=== PATIENT | female | born 1990 | race Caucasian/White ===

== ENCOUNTER 2021-05-25 12:28 | Emergency (ER) | payer OTHER, SELFPAY ==
--- NOTE | 2021-05-25 12:36 | ED.URI ---
HPI - URI/Sore Throat General Chief Complaint: Upper Respiratory Infection Stated Complaint: sinus infection Time Seen by Provider: 05/25/21 13:26 Source: patient and RN notes reviewed Mode of arrival: ambulatory Limitations: no limitations History of Present Illness HPI Narrative: 30-year-old female presents with concern for 3-day history of sore throat, sinus pain, nasal congestion, rhinorrhea, nausea. She reports sinus pressure and pressure around the eyes. Reports nasal drainage worsening. She reports sweats, has not taken her to her. She is vaccinated for COVID and flu. MD elicited complaint: sore throat and nasal congestion Related Data Home Medications Medication Instructions Recorded Confirmed Flonase 05/25/21 NuvaRing 05/25/21 Singulair 05/25/21 Zyrtec 05/25/21 Allergies Allergy/AdvReac Type Severity Reaction Status Date / Time No Known Allergies Allergy Verified 05/25/21 12:42 Review of Systems Review of Systems: CONSTITUTIONAL: Reports malaise,sweats EYES: Denies visual changes, redness, or discharge. ENT: Reports rhinorrhea, congestion, sinus pain, otalgia and sore throat. CARDIOVASCULAR: Denies chest pain, palpitations, or edema. RESPIRATORY: Reports occasional cough. Denies dyspnea. GASTROINTESTINAL: Denies abdominal pain, nausea, vomiting, diarrhea SKIN: Denies rash or itching. MUSCULOSKELETAL: Denies myalgia. NEUROLOGIC: Denies headache. All systems reviewed & are unremarkable except as noted in HPI and below PMFSH Comments At time of signature, agree with nursing past medical, surgical, social and family history. There is no relevant family history pertinent to the presenting complaint Exam Narrative: GENERAL: Nontoxic-appearing, well-nourished, and in no acute distress. HEAD: Normocephalic EYES: PERRLA, conjunctivae clear ENT: Nares clear. Mucous membranes moist. TM pearly murdock with dull light reflex bilaterally; no tragal tenderness. Oropharynx not erythematous without lesions. Tonsils not enlarged and without exudate, no drooling, no hoarseness, no trismus, uvula midline. NECK: Supple. No lymphadenopathy CHEST: Clear to auscultation, breath sounds equal. No wheezing, rhonchi, rales, or stridor. No respiratory distress, speaks in full sentences. HEART: Regular rate and rhythm. No murmur heard. SKIN: Warm, dry, no rash. NEURO: Alert and oriented x3. PSYCH: Normal mood and affect Course Course Emergency Course: Patient is aware of diagnosis, understands and agrees to treatment plan. Anticipatory guidance given. Patient agrees to follow-up as directed and is aware of reasons to seek care at the emergency department. Portions of this record may have been created with voice recognition software Level of Care: Express Care Visit Vital Signs Vital signs: Reviewed. MDM - URI/Sore Throat MDM Narrative Medical decision making narrative: Differential diagnosis considered: Lopez virus, strep pharyngitis, allergic rhinitis, upper respiratory tract infection, sinusitis, rhinosinusitis, nasopharyngitis. viral pharyngitis, otitis media, otitis externa, pneumonia, bronchitis, viral cough syndrome, viral syndrome, and influenza. Exam findings show no acute concerns or changes; patient is non-toxic appearing and is in no distress. Patient is appropriate for outpatient treatment and follow-up. Lab Data Attestation: I reviewed the patient's lab results. Critical Care Time Critical Care Time Critical Care Time: No Discharge Plan Discharge Clinical Impression: COVID-19, Influenza A Patient Disposition: Home, Self-Care Condition: Stable Instructions: Influenza (ED), How to Recover from COVID-19 at Home (ED) Additional Instructions: Your influenza test is positive Your rapid COVID test was positive today. The following recommendations have been made by the CDC and local Health Departments, regarding COVID-19: -Those individuals with mild cases of COVID-19 can generally be disco
== END 2021-05-25 13:43 | disposition home or self-care (01) ==
PROVIDERS: Emergency Provider Nurse Practitioner; PCP Family Medicine
DX: U07.1 COVID-19 (principal); J10.1 Influenza due to other identified influenza virus with other respiratory manifestations
CPT/HCPCS: 87426; 87804; 99213; C9803; G0463

== ENCOUNTER 2021-08-01 16:38 | Emergency (ER) | payer OTHER, SELFPAY ==
--- NOTE | ~2021-08-01 | XR_ITS ---
EXAMINATION: [id number] EXAM DATE: 08/01/2021 17:55 INDICATION: No known recent injury provided at this time. Pain of the left ribs. TECHNIQUE: Frontal projection of the upper left ribs, frontal projection of the lower left ribs, obli que projection of the left ribs, frontal chest x-ray(s) for interpretation. There is no prior study for comparison. FINDINGS: There are no displaced acute left rib fractures identified. There are no osteoblastic or o steolytic lesions identified. There is no soft tissue abnormality seen. No confluent consolidation, pneumothorax or pleural effusion suspected. IMPRESSION: No acute cardiopulmonary findings. Unremarkable left ribs. Reviewed, dictated and finalized at location .
[2021-08-01 17:02] VITALS: BP 107/87; PULSE 99; RESP 16; TEMP 37.6; O2SAT 100
--- NOTE | 2021-08-01 17:36 | ED.BACK ---
HPI - Back Pain/Injury General Chief Complaint: Back Pain/Injury Stated Complaint: Side and back Pain Time Seen by Provider: 08/01/21 17:37 Source: patient Mode of arrival: ambulatory Limitations: no limitations History of Present Illness HPI Narrative: 30-year-old female presents with pain to left mid back for 2 to 3 days. Denies injury. Did go and see her chiropractor, had x-rays of lower back and was told was normal. Was told to come to urgent care for muscle relaxant. Reports spasm when turning and when taking deep breath. Denies shortness of breath. All systems reviewed and negative except as noted above. Related Data Home Medications Medication Instructions Recorded Confirmed cetirizine 10 mg PO DAILY 08/01/21 08/01/21 etonogestrel-ethinyl estradiol 1 vag ring VAGINAL DIRECTED 08/01/21 08/01/21 [NuvaRing] fluticasone propionate 2 mcg INTRANASAL DIRECTED 08/01/21 08/01/21 montelukast 10 mg PO DAILY 08/01/21 08/01/21 Allergies Allergy/AdvReac Type Severity Reaction Status Date / Time No Known Allergies Allergy Verified 05/25/21 12:42 Review of Systems Review of Systems: CONSTITUTIONAL: Denies fever, chills, or sweats. EYES: Denies visual changes, redness, or discharge. ENT: Denies rhinorrhea, congestion, sore throat, or otalgia. CARDIOVASCULAR: Denies chest pain, palpitations, or edema. RESPIRATORY: Denies cough or dyspnea. GASTROINTESTINAL: Denies abdominal pain, nausea, vomiting, or diarrhea. GENITOURINARY: Denies dysuria or hematuria. SKIN: Denies rash or itching. MUSCULOSKELETAL: Pain to left mid back. NEUROLOGIC: Denies headache, numbness, or weakness. PSYCHIATRIC: Denies anxiety or depression. All other systems reviewed are negative, except as documented in HPI. PMFSH Comments At time of signature, agree with nursing past medical, surgical, social and family history. There is no relevant family history pertinent to the presenting complaint. Exam Narrative: GENERAL: This is a well-nourished, well-developed patient, in no apparent distress. HEAD: normocephalic, atraumatic. EYES: PERRL. Sclera clear/white. Vision is grossly intact. EARS: External ears normal NOSE: External nose normal THROAT: Mucous membranes moist NECK: Neck supple, non-tender without lymphadenopathy, masses or thyromegaly. CARDIOVASCULAR: Regular rate and rhythm without murmurs, gallops, or rubs. RESPIRATORY: Decreased lung sounds, patient reports pain when trying to take a deep breath. SKIN: warm, Dry, intact with no suspicious lesions or rash, good texture and turgor. NEURO: awake, alert, and oriented to person, place and time. There were no obvious focal neurologic abnormalities. EXTREMITIES: Normal range of motion to all extremities. BACK: Tenderness to left mid back. Spasm. Worse with flexion. Back/Spine/Pelvis: Back/spine/pelvis image: 1. tender on palpation Course Course Level of Care: Express Care Visit Vital Signs Vital signs: Vital Signs Temperature 37.6 C H 08/01/21 17:02 Pulse Rate 99 08/01/21 17:02 Respiratory Rate 16 08/01/21 17:02 Blood Pressure 107/87 08/01/21 17:02 Pulse Oximetry 100 08/01/21 17:02 Temperature 37.6 C H 08/01/21 17:02 Pulse Rate 99 08/01/21 17:02 Respiratory Rate 16 08/01/21 17:02 Blood Pressure 107/87 08/01/21 17:02 Pulse Oximetry 100 08/01/21 17:02 Reviewed MDM - Back Pain/Injury MDM Narrative Medical decision making narrative: Discussed x-ray results with patient. Will DC with muscle relaxant and anti-inflammatory. Recommend ice and heat. Patient is aware of diagnosis, understands and agrees to treatment plan. Anticipatory guidance given. Patient agrees to follow-up as directed and is aware of reasons to seek care at the emergency department. Portions of this record may have been created with voice recognition software Differential Diagnosis Differential diagnosis: Likely lumbar radiculopathy, sciatica, strain of lumbar region a
[2021-08-01] MEDS: KETOROLAC (*BKC) 60 MG/2 ML VIAL IM (17:56)
== END 2021-08-01 18:27 | disposition home or self-care (01) ==
PROVIDERS: Emergency Provider Nurse Practitioner Family; PCP Family Medicine
DX: S29.012A Strain of muscle and tendon of back wall of thorax, initial encounter (principal); S21.209A Unspecified open wound of unspecified back wall of thorax without penetration into thoracic cavity, initial encounter
CPT/HCPCS: 71101; 96372; 99213; G0463; J1885

== ENCOUNTER 2021-08-03 11:17 | Emergency (ER) | payer OTHER, SELFPAY ==
[2021-08-03 11:25] VITALS: BP 119/72; PULSE 120; RESP 16; TEMP 37.5; O2SAT 99
--- NOTE | 2021-08-03 11:49 | ED.URI ---
HPI - URI/Sore Throat General Chief Complaint: Upper Respiratory Infection Stated Complaint: sore throat Time Seen by Provider: 08/03/21 11:37 Source: patient and RN notes reviewed Mode of arrival: ambulatory Limitations: no limitations History of Present Illness HPI Narrative: Patient presents today with a 2-day history of sore throat and left-sided neck swollen lymph node with body aches and fatigue. Pain radiates to the left ear. She currently rates her pain 6/10 which increases with swallowing and movement. She has been taking ibuprofen with some mild relief. MD elicited complaint: sore throat Related Data Home Medications Medication Instructions Recorded Confirmed cetirizine 10 mg PO DAILY 08/01/21 08/01/21 etonogestrel-ethinyl estradiol 1 vag ring VAGINAL DIRECTED 08/01/21 08/01/21 [NuvaRing] fluticasone propionate 2 mcg INTRANASAL DIRECTED 08/01/21 08/01/21 montelukast 10 mg PO DAILY 08/01/21 08/01/21 Allergies Allergy/AdvReac Type Severity Reaction Status Date / Time No Known Allergies Allergy Verified 05/25/21 12:42 Review of Systems Review of Systems: CONSTITUTIONAL: Denies fever, chills, or sweats.+ Body aches, fatigue EYES: Denies visual changes, redness, or discharge. ENT: Denies rhinorrhea, congestion, or otalgia.+ Sore throat, swollen lymph node CARDIOVASCULAR: Denies chest pain, palpitations, or edema. RESPIRATORY: Denies cough or dyspnea. GASTROINTESTINAL: Denies abdominal pain, nausea, vomiting, or diarrhea. GENITOURINARY: Denies dysuria or hematuria. SKIN: Denies rash, itching, or wounds. MUSCULOSKELETAL: Denies back pain, joint pain, or myalgia. NEUROLOGIC: Denies headache, numbness, tingling, or weakness. PSYCH: Denies depression or anxiety. PMFSH Comments At time of signature, I have reviewed and agree with nursing past medical, surgical, social and family history unless otherwise noted. Please see nursing chart for further information. There is no relevant family history pertinent to the presenting complaint Exam Narrative: GENERAL: Well-appearing, well-nourished, and in no acute distress. HEAD: Normocephalic, atraumatic. EYES: EOMI. No redness or drainage. Conjunctivae normal. ENT: Mucous membranes pink and moist. Nares clear. No rhinorrhea. TMs normal bilaterally. Throat erythematous with mild edema, with bilateral tonsillar exudate. Tonsils 2+. Uvula midline. NECK: Normal AROM. Supple. Left tonsillar lymph node tenderness. CHEST: No respiratory distress. Clear to auscultation. HEART: Regular rate and rhythm. No murmur appreciated. Normal peripheral pulses. EXTREMITIES: Normal range of motion. No edema. SKIN: Warm, dry, no rash. Capillary refill normal. Normal skin turgor. NEURO: No focal deficits. Alert and oriented x3. Gait steady. PSYCH: Normal affect. No signs of depression or anxiety. Course Course Level of Care: Express Care Visit Vital Signs Vital signs: Vital Signs Temperature 99.5 F 08/03/21 11:25 Pulse Rate 120 H 08/03/21 11:25 Respiratory Rate 16 08/03/21 11:25 Blood Pressure 119/72 08/03/21 11:25 Pulse Oximetry 99 08/03/21 11:25 Temperature 99.5 F 08/03/21 11:25 Pulse Rate 120 H 08/03/21 11:25 Respiratory Rate 16 08/03/21 11:25 Blood Pressure 119/72 08/03/21 11:25 Pulse Oximetry 99 08/03/21 11:25 Reviewed MDM - URI/Sore Throat Differential Diagnosis Differential diagnosis: Likely upper respiratory infection, sinusitis, pharyngitis and other (Strep throat) Lab Data Attestation: I reviewed the patient's lab results. Lab results narrative: Rapid strep negative Critical Care Time Critical Care Time Critical Care Time: No Discharge Plan Discharge Clinical Impression: Pharyngitis Qualifiers: Pharyngitis/tonsillitis etiology: unspecified etiology Qualified Code(s): J02.9 - Acute pharyngitis, unspecified Patient Disposition: Home, Self-Care Condition: Stable Instructions: Pharyngitis (ED) A
== END 2021-08-03 11:58 | disposition home or self-care (01) ==
PROVIDERS: Emergency Provider Nurse Practitioner; PCP Family Medicine
DX: J02.9 Acute pharyngitis, unspecified (principal); Z86.14 Personal history of Methicillin resistant Staphylococcus aureus infection
CPT/HCPCS: 87081; 87880; 99213; G0463

== ENCOUNTER 2021-09-07 16:41 | Emergency (ER) | payer OTHER, SELFPAY ==
--- NOTE | ~2021-09-07 | XR_ITS ---
EXAM: XR hand LT min 3V HISTORY: FALL, LACERATION TO LT HAND COMPARISON: None available FINDINGS: Normal mineralization. No fracture or dislocation. No lytic or blastic lesion. Joint space s maintained. No erosion or periosteal change. Soft tissues within normal limits. IMPRESSION: No acute osseous finding in the left hand. Reviewed, dictated and finalized at location K.
[2021-09-07 16:50] VITALS: BP 123/65; PULSE 76; RESP 16; TEMP 37.8; O2SAT 100
--- NOTE | 2021-09-07 16:53 | ED.WOUNDLAC ---
HPI - Wound/Laceration General Chief Complaint: Wound/Laceration Stated Complaint: Laceration on right hand Time Seen by Provider: 09/07/21 16:53 Source: patient, RN notes reviewed and old records reviewed Mode of arrival: ambulatory Limitations: no limitations History of Present Illness HPI narrative: 30-year-old female presents to the [facility] with a laceration to the left ulnar aspect of hand. Continue centimeter laceration, flap. Cleaned no foreign bodies noted. Full range of motion noted with sensation intact in all 5 fingers. Capillary refill under 2 seconds Patient reports last tetanus was December 2020. Related Data Home Medications Medication Instructions Recorded Confirmed cetirizine 10 mg PO DAILY 08/01/21 09/07/21 etonogestrel-ethinyl estradiol 1 vag ring VAGINAL DIRECTED 08/01/21 09/07/21 [NuvaRing] montelukast 10 mg PO DAILY 09/07/21 09/07/21 Allergies Allergy/AdvReac Type Severity Reaction Status Date / Time No Known Allergies Allergy Verified 09/07/21 16:46 Review of Systems Review of Systems: All systems reviewed & are unremarkable except as noted in HPI and below Constitutional: Constitutional: Reports no additional constitutional complaints, Denies chills and Denies fever(s) Eyes: Eyes: Reports no additional eye complaints ENT: Reports system reviewed and no additional complaints, except as documented Cardiovascular: Cardiovascular: Reports no additional cardiovascular complaints, Denies chest pain and Denies dyspnea Respiratory: Respiratory: Reports no additional respiratory complaints, Denies cough and Denies dyspnea Gastrointestinal: Gastrointestinal: Reports no additional gastrointestinal complaints, Denies abdominal pain, Denies nausea and Denies vomiting Musculoskeletal: Musculoskeletal: Reports no additional musculoskeletal complaints Integumentary/Breasts: Skin/Breast: Reports as per HPI Comments: Laceration left ulnar palm Neurologic: Reports system reviewed and no additional complaints, except as documented Psychiatric: Psychiatric: Reports no additional psychiatric complaints Allergic/Immunologic: Allergic/Immunologic: Reports no additional allergic/immunologic complaints [facility] Past Medical History Medical History (Updated 09/07/21 @ 19:07 by Dulce Garnica APRN) No significant medical problems Surgical History Surgical History (Updated 09/07/21 @ 19:07 by Dulce Garnica APRN) No pertinent past surgical history Social History Social History (Updated 09/07/21 @ 19:07 by DIANA Rios Living arrangements: with family Gender identity (if verbalized by the patient): Female Comments At the time of my signature, I reviewed and agree with the nursing past medical, surgical, social, and family history. There is no relevant family history pertinent to the patient complaint. Exam Const: General: cooperative, healthy appearing, no acute distress, well developed, alert and awake Nutritional Appearance: well nourished Orientation/consciousness: patient oriented x3 Limitations: no limitations HENMT: Head: normal to inspection and No palpable skull fracture present Ears: hearing grossly normal bilaterally and external ears normal Eyes: Pupils: Equal, round and reactive pupils present Neck: Neck: normal visual inspection, no lymphadenopathy and no meningeal signs Chest: Chest palpation & inspection: normal inspection of the chest Resp: Effort & Inspection: normal respiratory effort Cardio: Rate: regular rate Rhythm: regular rhythm Skin: Wounds: wounds noted flap left lateral palm size (2); no drainage, not malodorous and without any surrounding erythema Neuro: General: patient oriented x3, gait normal, moves all extremities, no meningeal signs and no focal motor deficits Cranial nerves: Yes Equal, round and reactive pupils present Speech: normal speech Gait exam (Neuro): Normal gait present Extrem: General: normal to inspection Psych:
[2021-09-07] MEDS: NACL 0.9% IRRIG BAG 1,000 ML 999 ML IRRIGATION (17:20)
[2021-09-07] MEDS: LIDOCAINE HCL 1% LOCAL INJ 20 ML VIAL 3 ML INFILTRATE (18:01)
== END 2021-09-07 17:55 | disposition home or self-care (01) ==
PROVIDERS: Emergency Provider Nurse Practitioner; PCP Family Medicine
DX: S61.412A Laceration without foreign body of left hand, initial encounter (principal); S61.411A Laceration without foreign body of right hand, initial encounter; X58.XXXA Exposure to other specified factors, initial encounter
CPT/HCPCS: 12001; 73130; 99213; G0463; J7030

== ENCOUNTER 2022-01-13 15:48 | Emergency (ER) | payer OTHER, SELFPAY | END 2022-01-13 16:23 | disposition left against medical advice (07) | PROVIDERS: Emergency Provider Internal Medicine Hematology & Oncology; PCP Family Medicine | DX: Z53.21 Procedure and treatment not carried out due to patient leaving prior to being seen by health care provider (principal) | CPT/HCPCS: 99199 ==

== ENCOUNTER 2022-01-13 16:41 | Emergency (ER) | payer OTHER, SELFPAY ==
[2022-01-13 17:01] VITALS: BP 110/69; PULSE 87; RESP 16; TEMP 36.8; O2SAT 100
--- NOTE | 2022-01-13 17:20 | ED.URI ---
HPI - URI/Sore Throat General Chief Complaint: Upper Respiratory Infection Stated Complaint: uri Time Seen by Provider: 01/13/22 17:20 Source: patient and RN notes reviewed Mode of arrival: ambulatory Limitations: no limitations History of Present Illness HPI Narrative: 31 y/o female presented for c/o post nasal drainage with associated scratchy throat and sinus pressure. Onset one week. Started feeling worse today. Denies sob, cough, wheezing, vomiting, or fever. Takes scheduled Zyrtec, Flonase, and Singulair for allergies. MD elicited complaint: cough Related Data Home Medications Medication Instructions Recorded Confirmed cetirizine 10 mg tablet 10 mg PO DAILY 08/01/21 09/07/21 etonogestrel 0.12 mg-ethinyl 1 vag ring vaginal DIRECTED 08/01/21 09/07/21 estradiol 0.015 mg/24 hr vaginal ring (NuvaRing) montelukast 10 mg tablet 10 mg PO DAILY 09/07/21 09/07/21 fluticasone propionate 50 intranasal 01/13/22 mcg/actuation nasal spray,suspension Allergies Allergy/AdvReac Type Severity Reaction Status Date / Time No Known Allergies Allergy Verified 01/13/22 16:48 Review of Systems Review of Systems: CONSTITUTIONAL: Denies malaise, chills, sweats, fever EYES: Denies visual changes, redness, or discharge ENT: Reports rhinorrhea, congestion, sinus pain, otalgia, sore throat CARDIOVASCULAR: Denies chest pain, palpitations, edema RESPIRATORY: Denies cough, post nasal drainage, dyspnea GASTROINTESTINAL: Denies abdominal pain, nausea, vomiting, diarrhea SKIN: Denies rash or itching MUSCULOSKELETAL: Denies myalgia PMFSH Past Medical History Medical History No significant medical problems Surgical History Surgical History No pertinent past surgical history Social History Social History Gender identity (if verbalized by the patient): Female Exam Narrative: GENERAL: well-appearing EYES: conjunctivae clear ENT: Mucous membranes moist. TMs pearly murdock with dull light reflex bilaterally; no tragal tenderness. Oropharynx erythematous without lesions or exudate, Left tonsillar stone; no drooling, no hoarseness, no trismus, uvula midline. CHEST: Clear to auscultation, breath sounds equal. HEART: Regular rate and rhythm. No murmur heard. SKIN: Warm, dry, no rash. NEURO: Alert and oriented x3. PSYCH: Normal mood and affect Course Course Emergency Course: Patient is aware of diagnosis, understands and agrees to treatment plan. Anticipatory guidance given. Patient agrees to follow-up as directed and is aware of reasons to seek care at the emergency department. Portions of this record may have been created with voice recognition software Level of Care: Express Care Visit Vital Signs Vital signs: Vital Signs Temperature 98.3 F 01/13/22 17:01 Pulse Rate 87 01/13/22 17:01 Respiratory Rate 16 01/13/22 17:01 Blood Pressure 110/69 01/13/22 17:01 Pulse Oximetry 100 01/13/22 17:01 Oxygen Delivery Room Air 01/13/22 17:01 Temperature 98.3 F 01/13/22 17:01 Pulse Rate 87 01/13/22 17:01 Respiratory Rate 16 01/13/22 17:01 Blood Pressure 110/69 01/13/22 17:01 Pulse Oximetry 100 01/13/22 17:01 Oxygen Delivery Room Air 01/13/22 17:01 reviewed MDM - URI/Sore Throat MDM Narrative Medical decision making narrative: Advised supportive measures and signs/symptoms to go to the ER. Pt is appropriate for outpt treatment and f/u. Differential Diagnosis Differential diagnosis: Likely upper respiratory infection, sinusitis and viral infection Discharge Plan Discharge Clinical Impression: Upper respiratory infection Patient Disposition: Home, Self-Care Condition: Stable Instructions: Antibiotic Form, Sinusitis (ED) Additional Instructions: Continue Flonase spray and Zyrtec Take the an
== END 2022-01-13 17:34 | disposition home or self-care (01) ==
PROVIDERS: Emergency Provider Nurse Practitioner Family
DX: J06.9 Acute upper respiratory infection, unspecified (principal)
CPT/HCPCS: 99213; G0463

== ENCOUNTER 2024-05-16 11:22 | Emergency (ER) | payer OTHER, SELFPAY ==
--- NOTE | 2024-05-16 11:36 | ED_ITS ---
HPI - URI/Sore Throat General Chief Complaint: Upper Respiratory Infection Stated Complaint: Sore throat for 3 days Time Seen by Provider: 05/16/24 11:37 Source: patient, RN notes reviewed and old records reviewed Mode of arrival: ambulatory Limitations: no limitations History of Present Illness HPI Narrative: Patient presents with complaints of sore throat, subjective fever, runny nose. She reports symptoms have been present for a few days. She has not been taking any medications specifically for her symptoms, but she does continue to take her daily allergy medications. She denies any cough or wheezing. She denies any injury or trauma. She voices no other concerns or complaints at this time. Related Data Home Medications ?Medication ?Instructions ?Recorded ?Confirmed ?Last Taken ?Type cetirizine 10 mg tablet 10 mg PO DAILY 08/01/21 05/16/24 Unknown History etonogestrel 0.12 mg-ethinyl 1 vag ring vaginal DIRECTED 08/01/21 05/16/24 Unknown History estradiol 0.015 mg/24 hr vaginal ring (NuvaRing) montelukast 10 mg tablet 10 mg PO DAILY 09/07/21 05/16/24 Unknown History fluticasone propionate 50 1 spray intranasal DAILY 01/13/22 05/16/24 Unknown History mcg/actuation nasal spray,suspension azelastine 137 mcg (0.1 %) nasal 2 spray intranasal Q12H 05/16/24 05/16/24 Unknown History spray clindamycin phosphate 1 % lotion 1 applic topical DAILY 05/16/24 05/16/24 Unknown History spironolactone 50 mg tablet 50 mg PO DAILY 05/16/24 05/16/24 Unknown History tretinoin 0.025 % topical cream 1 applic topical WEEKLY 05/16/24 05/16/24 Unknown History Allergies Allergy/AdvReac Type Severity Reaction Status Date / Time No Known Allergies Allergy Verified 05/16/24 11:31 Review of Systems Review of Systems: All systems reviewed & are unremarkable except as noted in HPI and below Constitutional: Constitutional: Reports as per HPI and Reports no additional constitutional complaints ENT: Reports system reviewed and no additional complaints, except as documented and Reports as per HPI Cardiovascular: Cardiovascular: Reports no additional cardiovascular complaints Respiratory: Respiratory: Reports no additional respiratory complaints Gastrointestinal: Gastrointestinal: Reports no additional gastrointestinal complaints PMFSH Past Medical History Medical History No significant medical problems Surgical History Surgical History No pertinent past surgical history Social History Social History Living arrangements: with family Gender identity (if verbalized by the patient): Female Comments At the time of my signature, I reviewed and agree with the nursing past medical, surgical, social, and family history. There is no relevant family history pertinent to the patient complaint. Exam Const: General: cooperative, no acute distress, alert and awake Orientation/consciousness: oriented to person, oriented to place and oriented to time HENMT: Head: normal to inspection Throat: posterior oropharynx normal Resp: Effort & Inspection: normal respiratory effort and able to speak in complete sentences Auscultation: clear to auscultation bilaterally, no crackles, no rales, no rhonchi and no wheezes Cardio: Palpation: normal PMI Rate: regular rate Rhythm: regular rhythm Heart sounds: S1 normal heart sound present and S2 normal heart sound present Neuro: General: oriented to person, oriented to place and oriented to time Cranial nerves: Yes CN's II-XII intact bilaterally Psych: Appearance: grossly normal Thought process: Normal thought process present Insight: Good insight present (Psych) Judgement: Good judgement present (Psych) Course Course Level of Care: Express Care Visit Vital Signs Vital signs: Reviewed MDM - URI/Sore Throat MDM Narrative Medical decision making narrative: Reassuring physical exam. Negative strep, culture pending. Patient advised of supportive care measures. Discharge instructions reviewed with patient, as well as provided in writing per nursing staff. The instructions also include specific and strict return/GO TO THE ER as well as f/u information. All questions have been answered, and the patient deny any further questions with discharge and discharge plan. Some parts of this dictation were generated by voice recognition software and may contain typographical and/or grammatical inaccuracies. Differential Diagnosis Differential diagnosis: Likely upper respiratory infection, otitis media, viral infection, influenza and pharyngitis Medical Records Attestation: I reviewed the patient's medical records. Lab Data Attestation: I reviewed the patient's lab results. Discharge Plan Discharge Clinical Impression: Viral infection Patient Disposition: Home, Self-Care Condition: Stable Instructions: Antibiotic Form Additional Instructions: You may treat her symptoms with topd-guo-thhwlry medications, please follow package instructions. It is also important to remember that viruses are contagious until symptoms have resolved without the need for medication to treat them Follow-up with primary care provider, emergency department for new or worse symptoms Patient Language: Lithuanian Prescriptions: No Action cetirizine 10 mg tablet 10 mg PO DAILY etonogestrel-ethinyl estradiol [NuvaRing] 0.12-0.015 mg/24 hr ring 1 vag ring VAGINAL DIRECTED montelukast 10 mg tablet 10 mg PO DAILY fluticasone propionate 50 mcg/actuation spray,suspension 1 spray INTRANASAL DAILY azelastine 137 mcg (0.1 %) spray,non-aerosol 2 spray INTRANASAL Q12H clindamycin phosphate 1 % lotion 1 applic TOPICAL DAILY spironolactone 50 mg tablet 50 mg PO DAILY tretinoin 0.025 % cream 1 applic TOPICAL WEEKLY Follow-up/Referrals: Wilbert,Alli Wallis MD [Primary Care Provider] - 2 Weeks Time of Disposition: 12:36
[2024-05-16 11:41] VITALS: BP 115/77; PULSE 100; RESP 16; TEMP 37.4; O2SAT 100
[2024-05-16 12:06] LABS: EDSTREPNEGPOS1 Negative (Negative)
== END 2024-05-16 12:39 | disposition home or self-care (01) ==
PROVIDERS: Emergency Provider Nurse Practitioner Family; PCP Family Medicine
DX: B34.9 Viral infection, unspecified (principal)
CPT/HCPCS: 87081; 87880; 99213; G0463